=== PATIENT | female | born 1950 | race Caucasian/White ===

== ENCOUNTER 2022-02-11 07:57 | Day surgery (SDC) | payer MEDICARE, BC ==
[~2022-02-11 07:57] MED LIST: Propofol 200 MG/20 ML SDV ONE; fentaNYL 100 MCG/2 ML SDV ONE
[2022-02-11] MEDS ORDERED: Lactated Ringers 1,000 ML IV SCH (08:30)
== END 2022-02-11 11:05 | disposition home or self-care (01) ==
LOC: JP.SDS 07:57
PROVIDERS: ATTEND Surgery
DX: Z12.11 Encounter for screening for malignant neoplasm of colon (principal); D12.2 Benign neoplasm of ascending colon; K57.30 Diverticulosis of large intestine without perforation or abscess without bleeding; G47.33 Obstructive sleep apnea (adult) (pediatric); E66.9 Obesity, unspecified
CPT/HCPCS: 88305; J2704; J3010; J7120

== ENCOUNTER 2024-05-16 07:51 | Day surgery (SDC) | payer MEDICARE, BC ==
[~2024-05-16 07:51] MED LIST changes: +Midazolam 1 MG/ML 2 ML SDV ONE
[2024-05-16] MEDS: Sodium Chloride 0.9% 1,000 ML IV SCH (08:12)
[2024-05-16] MEDS: ceFAZolin 2 GM in Premix Bag 1 BAG IV ONE (10:05)
[2024-05-16] MEDS: Bupivacaine 0.5% 50 ML MDV ONE (10:30)
[2024-05-16] MEDS: Lidocaine 1% with EPINEPHrine 1:100,000 50 ML MDV ONE (10:30)
[2024-05-16] MEDS: Ondansetron 4 MG/2 ML SDV IVPUSH PRN (11:50)
== END 2024-05-16 12:17 | disposition home or self-care (01) ==
LOC: JP.SDS 07:51
PROVIDERS: ATTEND Surgery
DX: D17.1 Benign lipomatous neoplasm of skin and subcutaneous tissue of trunk (principal); G47.33 Obstructive sleep apnea (adult) (pediatric)
CPT/HCPCS: 22903; 88304; J0665; J0690; J2250; J2405; J2704; J3010; J7030; 00700-QZ